=== PATIENT | male | born 2000 | race Caucasian/White ===

== ENCOUNTER 2022-01-20 18:44 | Emergency (ER) | payer OTHER, SELFPAY ==
[2022-01-20 18:51] VITALS: BP 117/64; PULSE 113; RESP 16; TEMP 36.3; O2SAT 98
--- NOTE | 2022-01-20 20:10 | ED.URI ---
HPI - URI/Sore Throat General Chief Complaint: Upper Respiratory Infection Stated Complaint: Headache/Sore Throat Time Seen by Provider: 01/20/22 20:07 Source: patient and RN notes reviewed Mode of arrival: ambulatory Limitations: no limitations History of Present Illness HPI Narrative: 21-year-old male presenting for complaint of headache, body aches, sinus pressure/congestion, cough, fever/chills. onset Yesterday. He is taking DayQuil without relief. He denies sick contacts. He denies shortness of breath, wheezing, nausea, vomiting, diarrhea. MD elicited complaint: cough Related Data Home Medications Medication Instructions Recorded Confirmed No Home Medications 01/20/22 01/20/22 Allergies Allergy/AdvReac Type Severity Reaction Status Date / Time No Known Allergies Allergy Verified 01/20/22 18:54 Review of Systems Review of Systems: ROS per HPI Exam Narrative: GENERAL: Ill-appearing, nontoxic EYES: PERRLA, conjunctivae clear ENT: Mucous membranes moist. TM pearly truong with dull light reflex bilaterally; no tragal tenderness. Oropharynx erythematous without lesions or exudate, no drooling, no hoarseness, no trismus, uvula midline. No tripod positioning, muffled voice, soft palate or pharyngeal wall bulging NECK: Supple. No lymphadenopathy CHEST: Clear to auscultation, breath sounds equal. No wheezing, rhonchi, rales, or stridor. No respiratory distress, speaks in full sentences. HEART: Regular rate and rhythm. No murmur heard. SKIN: Warm, dry, no rash. NEURO: Alert and oriented x3. Course Course Emergency Course: Patient is aware of diagnosis, understands and agrees to treatment plan. Anticipatory guidance given. Patient agrees to follow-up as directed and is aware of reasons to seek care at the emergency department. Portions of this record may have been created with voice recognition software Level of Care: Express Care Visit Vital Signs Vital signs: Vital Signs Temperature 97.4 F L 01/20/22 18:51 Pulse Rate 113 H 01/20/22 18:51 Respiratory Rate 16 01/20/22 18:51 Blood Pressure 117/64 01/20/22 18:51 Pulse Oximetry 98 01/20/22 18:51 Oxygen Delivery Room Air 01/20/22 18:51 Temperature 97.4 F L 01/20/22 18:51 Pulse Rate 113 H 12/06/22 18:51 Respiratory Rate 16 01/20/22 18:51 Blood Pressure 117/64 01/20/22 18:51 Pulse Oximetry 98 01/20/22 18:51 Oxygen Delivery Room Air 01/20/22 18:51 reviewed MDM - URI/Sore Throat MDM Narrative Medical decision making narrative: covid negative, flu positive. Results reviewed with patient. Advised supportive measures and signs/symptoms to go to the ER. Pt is appropriate for outpt treatment and f/u. Differential Diagnosis Differential diagnosis: Likely upper respiratory infection, sinusitis and viral infection Lab Data Labs: Lab Results 01/20/22 Range/Units Unknown POC SARS CoV-2 Ag Negative (Negative) Discharge Plan Discharge Clinical Impression: Influenza Patient Disposition: Home, Self-Care Condition: Stable Instructions: Influenza (ED) Additional Instructions: Influenza positive You should avoid crowds until you are fever free for 24 hours without the use of fever reducing medications, or the symptoms are improved Rest. Drink plenty of fluids. Tylenol 1000mg every 8 hours as needed for pain/fever Recommend Flonase spray and Zyrtec (or Claritin/Carol) for sinus pressure/congestion over the counter Cough syrup may cause drowsiness; avoid driving or take it at night time. Follow up with your primary care provider as needed in 1-2 weeks Go to the ER for worsening symptoms or concerns Prescriptions: No Action No Home Medications Follow-up/Referrals: PHYSICIAN,UNIVERSAL WINDING MACHINE OPERATOR [Primary Care Provider] - Stand Alone Forms: Work/School Release IP Time of Disposition: 20:35
== END 2022-01-20 20:40 | disposition home or self-care (01) ==
PROVIDERS: Emergency Provider Nurse Practitioner Family
DX: J11.1 Influenza due to unidentified influenza virus with other respiratory manifestations (principal); Z20.822 Contact with and (suspected) exposure to COVID-19
CPT/HCPCS: 87426; 87804; 99213; C9803; G0463

== ENCOUNTER 2022-07-24 13:05 | Emergency (ER) | payer OTHER, SELFPAY ==
[2022-07-24 13:19] VITALS: BP 115/67; PULSE 80; RESP 18; TEMP 36.1; O2SAT 99
--- NOTE | 2022-07-24 13:25 | ED.GENADULT ---
HPI - General Adult General Stated complaint: has strep/needs note to return to work Source: patient and RN notes reviewed History of Present Illness HPI narrative: 22 yo M presents to urgent care with complaints of continued sore throat, MILIAN, and soreness to his bilateral anterior neck. Pt states he was dx with strep throat on Wednesday and placed on Amoxicillin at that time. Pt states this is very typical for him when he gets strep and he is here for a work note. Pt states his original work note instructed him to come back today but he doesn't feel well enough to return until tomorrow. Denies any fevers, chills, vomiting, SOB, or chest pain. Related Data Home Medications Medication Instructions Recorded Confirmed amoxicillin 875 mg tablet mg 07/24/22 07/24/22 sertraline 50 mg tablet 50 mg PO DAILY 07/24/22 07/24/22 Allergies Allergy/AdvReac Type Severity Reaction Status Date / Time No Known Allergies Allergy Verified 07/24/22 13:24 Review of Systems Review of Systems: Pertinent positives and pertinent negatives per HPI. PMFSH Comments At the time of my signature, I reviewed and agree with the nursing past medical, surgical, social, and family history. There is no relevant family history pertinent to the patient complaint. Exam Narrative: GENERAL: This is a well-nourished, well-developed patient, in no apparent distress. HEAD: normocephalic, atraumatic. EYES: Sclera clear/white. Vision is grossly intact. EARS: External ears normal, auditory canals clear and without drainage, TMs normal without perforation. Hearing grossly intact. NOSE: External nose normal with no obvious nasal discharge, nares without redness, no rhinorrhea. THROAT: Mucous membranes moist, posterior pharynx clear. NECK: Neck supple, non-tender without lymphadenopathy, masses or thyromegaly. CARDIOVASCULAR: Regular rate and rhythm without murmurs, gallops, or rubs. RESPIRATORY: Clear to auscultation. Breath sounds equal bilaterally. No wheezes, rales, or rhonchi. GASTROINTESTINAL: Abdomen soft, non-tender, nondistended. Bowel sounds are active. No hepato-splenomegaly, or palpable masses. No guarding. SKIN: warm, intact with no suspicious lesions or rash, good texture and turgor. NEURO: awake, alert, and oriented to person, place and time. There were no obvious focal neurologic abnormalities. Course Course Level of Care: Express Care Visit Vital Signs Vital signs: Vital Signs Temperature 97 F L 07/24/22 13:19 Pulse Rate 80 07/24/22 13:19 Respiratory Rate 18 07/24/22 13:19 Blood Pressure 115/67 07/24/22 13:19 Pulse Oximetry 99 07/24/22 13:19 Oxygen Delivery Room Air 07/24/22 13:19 Temperature 97 F L 07/24/22 13:19 Pulse Rate 80 07/24/22 13:19 Respiratory Rate 18 07/24/22 13:19 Blood Pressure 115/67 07/24/22 13:19 Pulse Oximetry 99 07/24/22 13:19 Oxygen Delivery Room Air 07/24/22 13:19 reviewed Medical Decision Making MDM Narrative Medical decision making narrative: Pt given a work note for today. Complete your antibiotics as directed. Get plenty of fluids. Differential Diagnosis Differential Diagnosis: needs a work note, strep throat, well child exam Vital Signs Vital Signs: Vital Signs Temperature 97 F L 07/24/22 13:19 Pulse Rate 80 07/24/22 13:19 Respiratory Rate 18 07/24/22 13:19 Blood Pressure 115/67 07/24/22 13:19 Pulse Oximetry 99 07/24/22 13:19 Oxygen Delivery Room Air 07/24/22 13:19 Temperature 97 F L 07/24/22 13:19 Pulse Rate 80 07/24/22 13:19 Respiratory Rate 18 07/24/22 13:19 Blood Pressure 115/67 07/24/22 13:19 Pulse Oximetry 99 07/24/22 13:19 Oxygen Delivery Room Air 07/24/22 13:19 Critical Care Time Critical Care Time Critical Care Time: No Discharge Plan Discharge Clinical Impression: Pharyngitis Qualifiers: Pharyngitis/tonsillitis etiology: streptococcus Qualified Code(s): J02.0 - Streptococcal pharyngi
== END 2022-07-24 13:38 | disposition home or self-care (01) ==
PROVIDERS: Emergency Provider Nurse Practitioner Family; PCP Family Medicine
DX: J02.0 Streptococcal pharyngitis (principal); F41.9 Anxiety disorder, unspecified
CPT/HCPCS: 99211; G0463

== ENCOUNTER 2022-09-22 11:51 | Emergency (ER) | payer OTHER, SELFPAY ==
[2022-09-22 11:56] VITALS: BP 115/59; PULSE 88; RESP 20; TEMP 37.1; O2SAT 99
--- NOTE | 2022-09-22 12:18 | ED.NAVMDI ---
HPI - Nausea/Vomiting/Diarrhea General Chief complaint: Nausea/Vomiting/Diarrhea Stated complaint: Diarrhea/Abdominal Pain Source: patient and RN notes reviewed History of Present Illness HPI Narrative: 22 yo M presents to urgent care with requests for a work note to return to work. Pt states he had diarrhea and abdominal discomfort starting Wednesday morning and the rest of the weekend, he didn't feel great. Pt states he is needing a note to go back to work. Denies any N/V, fevers, chills, further abdominal pain, or further diarrhea. Pt has no other complaints and and states his girlfriend was sick as well. Related Data Home Medications Medication Instructions Recorded Confirmed buspirone 15 mg tablet 7.5 mg PO PRN PRN Anxiety 09/22/22 09/22/22 Allergies Allergy/AdvReac Type Severity Reaction Status Date / Time No Known Allergies Allergy Verified 09/22/22 12:04 Review of Systems Review of Systems: Pertinent positives and pertinent negatives per HPI. PMFSH Comments At the time of my signature, I reviewed and agree with the nursing past medical, surgical, social, and family history. There is no relevant family history pertinent to the patient complaint. Exam Narrative: GENERAL: This is a well-nourished, well-developed patient, in no apparent distress. HEAD: normocephalic, atraumatic. EYES: Sclera clear/white. Vision is grossly intact. EARS: External ears normal, auditory canals clear and without drainage. Hearing grossly intact. NOSE: External nose normal with no obvious nasal discharge, nares without redness, no rhinorrhea. THROAT: Mucous membranes moist, posterior pharynx clear. NECK: Neck supple, non-tender without lymphadenopathy, masses or thyromegaly. CARDIOVASCULAR: Regular rate and rhythm without murmurs, gallops, or rubs. RESPIRATORY: Clear to auscultation. Breath sounds equal bilaterally. No wheezes, rales, or rhonchi. GASTROINTESTINAL: Abdomen soft, non-tender, nondistended. Bowel sounds are active. No hepato-splenomegaly, or palpable masses. No guarding. SKIN: warm, intact with no suspicious lesions or rash, good texture and turgor. NEURO: awake, alert, and oriented to person, place and time. There were no obvious focal neurologic abnormalities. EXTREMITIES: No clubbing, cyanosis, or edema. No joint tenderness, effusion, or edema noted. BACK: Nontender without deformity or crepitus. No flank tenderness. Course Course Level of Care: Express Care Visit Vital Signs Vital signs: Vital Signs Temperature 98.8 F 09/22/22 11:56 Pulse Rate 88 09/22/22 11:56 Respiratory Rate 20 09/22/22 11:56 Blood Pressure 115/59 L 09/22/22 11:56 Pulse Oximetry 99 09/22/22 11:56 Oxygen Delivery Room Air 09/22/22 11:56 Temperature 98.8 F 09/22/22 11:56 Pulse Rate 88 09/22/22 11:56 Respiratory Rate 20 09/22/22 11:56 Blood Pressure 115/59 L 09/22/22 11:56 Pulse Oximetry 99 09/22/22 11:56 Oxygen Delivery Room Air 09/22/22 11:56 Reviewed MDM - Nausea/Vomiting/Diarrhea Differential Diagnosis Differential diagnosis: Likely traveler's diarrhea, food poisoning and gastroenteritis Critical Care Time Critical Care Time Critical Care Time: No Discharge Plan Discharge Clinical Impression: Well adult exam Patient Disposition: Home, Self-Care Condition: Stable Instructions: General Patient Instructions Prescriptions: No Action buspirone [BuSpar] 15 mg Tablet 7.5 mg PO PRN PRN (Reason: Anxiety) Follow-up/Referrals: Mateusz,Sarahi Selby DO [Primary Care Provider] - Stand Alone Forms: Work/School Release IP Time of Disposition: 12:21
== END 2022-09-22 12:26 | disposition home or self-care (01) ==
PROVIDERS: Emergency Provider Nurse Practitioner Family; PCP Family Medicine
DX: Z00.00 Encounter for general adult medical examination without abnormal findings (principal)
CPT/HCPCS: 99211; G0463

== ENCOUNTER 2024-08-19 19:31 | Emergency (ER) | payer SELFPAY ==
--- OUTSIDE RECORDS SUMMARY | 2024-08-19 19:33 | XMS_ITS | Clinical Summary ---
Author Organization [facility] [address] [place] [id number] Care Team Providers Care Welder Apprentice Name Role Phone Sarahi Child Primary Care Provider [phone] Allergies No known active allergies Medications cetirizine (ZyrTEC) 10 mg chewable tablet Take 1 tablet (10 mg total) by mouth daily Active methylPREDNISol one (MEDROL DOSEPACK) 4 mg DosepackIndicat ions:Acute right-sided low back pain without sciatica Take as directed on package. 21 tablet 04/06/2024 Active ibuprofen (ADVIL,MOTRIN) 800 mg tabletIndicatio ns:Acute right-sided low back pain without sciatica Take 1 tablet (800 mg total) by mouth every 8 (eight) hours as needed for pain (pain) 90 tablet 1 04/06/2024 04/06/19 26 Active cyclobenzaprine (FLEXERIL) 10 mg tabletIndicatio ns:Acute right-sided low back pain without sciatica Take 1 tablet (10 mg total) by mouth nightly as needed for muscle spasms 30 tablet 1 04/06/2024 04/06/19 26 Active Active Problems Problem Noted Date Diagnosed Date Acne vulgaris 10/04/2023 Assessment & Plan (10/04/2023 3:10 PM CDT): Requesting referral to Dermatology for treatment. He has tried [id number] treatments without any success. Referral placed. Shifting sleep-work schedule, affecting sleep Assessment & Plan (04/09/2022 9:56 AM ELECTRICIAN'S ASSISTANT): Trial of Ambien. Precautions given. Family history of cardiac disorder 03/17/2022 Assessment & Plan (03/17/2022 3:13 PM ELECTRICIAN'S ASSISTANT): Referred to cardiology for further eval/mgmt. Family history of anxiety disorder 03/17/2022 Assessment & Plan (03/17/2022 3:13 PM ELECTRICIAN'S ASSISTANT): Trial of sertraline, encouraged counseling. Class 1 obesity due to exces s calories without serious comorbidity with body mass index (BMI) of 33.0 to 33.9 in adult 03/14/2021 Assessment & Plan (07/27/2022 12:32 PM CDT): Wt Readings from Last 3 Encounters: 07/27/22 106.4 kg (234 lb 9.6 oz) 07/22/22 95.3 kg (210 lb) 06/12/22 102.5 kg (226 lb) BMI Readings from Last 3 Encounters: 07/27/22 34.62 kg/m 07/22/22 30.99 kg/m 06/12/22 33.36 kg/m Not at goal of bmi <30 Continue diet and exercise BMI Follow-up includes: nutrition counseling and exercise counseling. Assessment & Plan (03/17/2021 12:14 AM ELECTRICIAN'S ASSISTANT): Weight reduction, daily exercise and dietary modifications recommended. Resolved Problems Problem Noted Date Diagnosed Date Resolved Date Gastroenteritis 06/10/2022 10/04/2023 Assessment & Plan (06/12/2022 10:13 AM CDT): Clinically resolved. Return to work note given to patient. Chest pain 03/17/2022 04/08/2022 Assessment & Plan (03/17/2022 3:11 PM ELECTRICIAN'S ASSISTANT): Unchanged from when he went to ER. Reviewed ER records, agree with ER physician when he states that most likely non-cardiac chest pain. However, due to his family history, will refer to cardiology for further evaluation. Patient feels comfortable with this. Return to work note given. Generalized anxiety disorder 03/17/2022 10/04/2023 Assessment & Plan (08/28/2022 11:10 AM CDT): Patient feels like the BuSpar has helped him, and he would like to remain on it and take it on an as-needed basis. Will follow closely. Go to nearest emergency room if you feel you may be a harm to herself or to someone else. Assessment & Plan (07/27/2022 12:43 PM CDT): Pt states that sx are worsening - having episodes of heavy chest pressure with rapid heartbeats, feels body go numb this has previously happened before Had previously good results with sertraline Will increase his sertraline to 75 mg every day, and start buspar 7.5 mg bi Discussed increasing it to 100 but patient didn't want to go that high Assessment & Plan (04/09/2022 9:56 AM ELECTRICIAN'S ASSISTANT): Clinically improved, increase sertraline from 25 mg daily up to 50 mg daily. Go to nearest emergency room if you feel you will be a harm to herself or to others. Assessment & Plan (03/17/2022 3:09 PM ELECTRICIAN'S ASSISTANT): Trial of sertraline. Encouraged counseling, gave patient a counseling packet that has local counselor information in it. Encouraged him to check benefits with his insurance company. Close f/u. Go to nearest ER if you feel you will be a harm to yourself or to someone else. Acute left-sided low back pa in without sciatica 03/17/2021 03/17/2022 Assessment & Plan (03/17/2021 12:16 AM ELECTRICIAN'S ASSISTANT): Urine dipstick neg. Xrays ordered. Referred to PT. Strain of lumbar region 03/17/202102/17 Assessment & Plan (03/17/2021 12:15 AM ELECTRICIAN'S ASSISTANT): Heating pad recommended. OTC pain reliever of choice recommended. Xrays ordered, will follow. Referred to PT. Contact dermatitis 02/16/2017 Assessment & Plan (02/16/2017 6:31 PM ELECTRICIAN'S ASSISTANT): Complete the prednisone as directed You may use Benadryl or Zyrtec for itching You can use an OTC hydrocortisone cream to soothe your skin topically Keep your skin cool & wear loose clothing to avoid becoming hot, which could increase the itching. If your rash is not getting better after finishing the steroids, please RTC or follow up w PCP If your symptoms worsen- go to ER Encounters Date Type Department Care Team Description 07/27/2024 Telephone [facility] [address] [place] [phone] Sarahi Child, DO from Last 3 Months Immunizations Immunization Administration Dates Next Due DTaP, Unspecified 05/27/2005, 2,2000,09/22,2000 HPV9 09/14/2018,10/20/2017,07/06/2017 Hep A, Ped Unspecified 09/11/2005 Hep A, Unspecified 12/08/2004 Hep B, Adolescent or Pediatric 09/14/2018,2000 Hep B, Unspecified 2000,2000 HiB 05/10/2001,2000,2000 Influenza, Quadrivalent, Spl it, Preservative Free, Intramuscular 03/17/2022,11/19/2017 Influenza, Unspecified 11/16/2023(Deferr ed: Patient Refused),03/14/2021(Deferred: Patient Refused),12/27/2007,11/22/2002, 002,01/05/2002 Influenza, Whole 12/14/2006 MMR 05/16/2004,08/10/2001 Meningococcal B, OMV (Bexsero) 11/19/2017,2017 Meningococcal MCV4, Unspecified 10/06/2011 Meningococcal MCV4P (Menactra) 08/10/2017 Pneumococcal Conjugate PCV 13 08/10/2001, 001,2000 Polio, Unspecified 05/27/2005, 1,2000,07/09 Tdap 10/15/2010 Varicella 05/11/2006,05/10/2001 Surgical History Surgery Date Site/Laterality Comments NO PAST SURGERIES Medical History Medical History Date Comments Asthma Family History Medical History Relation Name Comments Bartholomew's esophagus Father Cancer Maternal Grandfather Cancer Maternal Grandmother Anxiety disorder Mother Relation Name Status Comments Father Alive Maternal Grandfather Maternal Grandmother Mother Alive Social History Tobacco Use Types Packs/Day Years Used Date Smoking Tobacco: Some Days Cigarettes Cigars Smokeless Tobacco: Never Tobacco Cessation:Ready to Q uit: Not Asked; Counseling Given: Not Answered Alcohol Use Standard Drinks/Week Comments No 0 (1 standard drink = 0.6 oz pur e alcohol) AUDIT-C Answer Date Recorded Q1: How often do you have a drink containing alc ohol? 2-4 times a month 10/04/2023 Q2: How many drinks containi ng alcohol do you have on a typical day when you are drinking? 1 or 2 10/04/2023 Q3: How often do you have si x or more drinks on one occasion? Never 10/04/2023 PHQ-2 Answer Date Recorded PHQ-2 Total Score (If total score is 3 or more points, staff should administer the PHQ-9) 0 10/04/2023 Personal Safety Answer Date Recorded Have you ever been in or are you currently in a harmful physical or emotional relationship or is someone making you feel afraid or unsafe? Denies 06/10/2022 Sex and Gender Information Value Date Recorded Sex Assigned at Not on file Legal Sex Male 3:03 AM ELECTRICIAN'S ASSISTANT Gender Identity Not on file Sexual Orientation Not on file Obstetrics History Last Filed Vital Signs Vital Sign Reading Time Taken Comments Blood Pressure 104/60 04/06/2024 1:06 PM ELECTRICIAN'S ASSISTANT Pulse 87 04/06/2024 1:06 PM ELECTRICIAN'S ASSISTANT Temperature 37.1 C (98.8 F) 04/06/2024 1:06 PM ELECTRICIAN'S ASSISTANT Respiratory Rate 16 04/06/2024 1:06 PM ELECTRICIAN'S ASSISTANT Oxygen Saturation 98% 04/06/2024 1:06 PM ELECTRICIAN'S ASSISTANT Inhaled Oxygen Concentration - - Weight 101.3 kg (223 lb 6.4 oz) 04/06/2024 1:06 PM ELECTRICIAN'S ASSISTANT Height 172.7 cm (5' 8) 04/06/2024 1:06 PM ELECTRICIAN'S ASSISTANT Body Mass Index 33.97 04/06/2024 1:06 PM ELECTRICIAN'S ASSISTANT Plan of Treatment Health Maintenance Due Date Last Done Comments Hepatitis C Screening 2000 Depression Screening 10/03/2024 10/04/2023, 08/26/2022, 08/26/2022, Additional history exists Regular Well Visit/Exam 18-64 10/03/2024 10/04/2023 Influenza Vaccine (Season Ended) 2024 03/17/2022, 11/19/2017, 12/27/2007, Additional history exists Pneumococcal vaccine <65 (1 of 1 - PPSV23) 03/20/2025 08/10/2001, 2000, 2000 Postponed from 2006 (Patient declined, but will receive in the future) DTaP/Tdap/Td Vaccine (7 - Td or Tdap) 04/04/2027 10/15/2010, 05/27/2005, 08/10/2001, Additional history exists Postponed from 10/15/2020 (Insurance / Financial) Varicella Vaccines Completed 05/11/2006, 05/10/2001 HPV Vaccines Completed 09/14/2018, 06/2017, 07/06/2017 Hepatitis B Screening Completed 09/14/2018 , 2000, 2000, Additional history exists [place] [address] [facility] Care Teams Welder Apprentice Relationship Specialty Start Date End Date Sarahi Child DO [address] [facility] [address] [address] [place]IM[place] [address] [place] [phone] PCP - General Family Medicine 03/14/21
--- OUTSIDE RECORDS SUMMARY | 2024-08-19 19:33 | XMS_ITS | Encounter Summary ---
Author Organization [facility] Healthcare Address [address] [place] [address] Care Team Providers Care Finishing Area Operator Name Role Phone Sarahi Child DO Primary Care Provider [phone]- [phone] Encounter Details Date Type Department Care Team (Late st Contact Info) Description 10/13/2023 Orders Only [facility] Health Information Management [address] [place] [phone] [place] [address] [place] [address] [address] Social History Tobacco Use Types Packs/Day Years Used Date Smoking Tobacco: Some Days Cigarettes Cigars Smokeless Tobacco: Never Alcohol Use Standard Drinks/Week Comments No 0 [...] on file Legal Sex 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:03 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 Gender Identity Not on file Sexual Orientation Not on file documented as of this encounter Plan of Treatment Not on file documented as of this encounter Procedures Procedure Name Priority Date/Time Associated Diagnosis Comments SCAN - LABS 10/13/2023 documented in this encounter Results * SCAN - LABS (10/13/2023) us Sarahi Child DO Final Resu lt documented in this encounter Visit Diagnoses Not on filedocumented in this encounter Care Teams Finishing Area Operator Relationship Specialty Start Date End Date Sarahi Child DO [address] [facility] [address] [facility] [place] [address] PCP - General Family Medicine 03/14/21 documented as of this encounter
--- OUTSIDE RECORDS SUMMARY | 2024-08-19 19:33 | XMS_ITS | Referral Summary ---
Author Organization [id number] [place] Address [address] [place] [id number] Care Team Providers Care Refrigeration Engineering Teacher Name Role Phone Sarahi Child DO Primary Care Provider [phone]- [phone] Encounters Date Type Department Care Team Description 07/27/2024 Telephone [facility] [place] [address] [place] [address] [address] [place] [address] Sarahi Child DO from Last 3 Months Allergies No known active allergies Medications cetirizine [...] to Dermatology for treatment. He has tried [id number] treatments without any success. Referral placed. 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 Precautions given. Family history of cardiac disorder 03/17/2022 Assessment & Plan (03/17/2022 3:13 PM HAND PRINTED [employer] BOARD ASSEMBLER): Referred to cardiology for further eval/mgmt. Family history of anxiety disorder 03/17/2022 Assessment & Plan (03/17/2022 3:13 PM HAND PRINTED [employer] BOARD ASSEMBLER): Trial of sertraline, encouraged counseling. Class 1 [...] counseling. Assessment & Plan (03/17/2021 12:14 AM HAND PRINTED CIRCUIT BOARD ASSEMBLER): Weight reduction, daily exercise and dietary modifications recommended. Resolved Problems Problem Noted Date Diagnosed Date Resolved Date Gastroenteritis 06/10/2022 10/04/2023 Assessment & Plan (06/12/2022 10:13 AM CDT): Clinically resolved. Return to work note given to patient. Chest pain 03/17/2022 04/08/2022 Assessment & Plan (03/17/2022 3:11 PM HAND PRINTED [employer]ARD ASSEMBLER): Unchanged from when he went to ER. [...] high Assessment & Plan (04/09/2022 9:56 AM HAND PRINTED CIRCUIT BOARD ASSEMBLER): Clinically improved, increase sertraline from 25 mg daily up to 50 mg daily. Go to nearest emergency room if you feel you will be a harm to herself or to others. Assessment & Plan (03/17/2022 3:09 PM HAND PRINTED [employer] BOARD ASSEMBLER): Trial of sertraline. Encouraged counseling, gave patient a counseling packet that has local counselor information in it. Encouraged him to check benefits with his insurance company. Close f/u. Go to nearest ER if you feel you will be a harm to yourself or to someone else. Acute left-sided low back pa in without sciatica 03/17/2021 03/17/2022 Assessment & Plan (03/17/2021 12:16 AM HAND PRINTED [employer]ARD ASSEMBLER): Urine dipstick neg. Xrays ordered. Referred to PT. Strain of lumbar region 03/17/202102/17 Assessment & Plan (03/17/2021 12:15 AM HAND PRINTED CIRCUIT BOARD ASSEMBLER): Heating pad recommended. OTC pain reliever of choice recommended. Xrays ordered, will follow. Referred to PT. Contact dermatitis 02/16/2017 Assessment & Plan (02/16/2017 6:31 PM HAND PRINTED CIRCUIT BOARD ASSEMBLER): Complete the prednisone as directed You may [...] If your symptoms worsen- go to ER Immunizations Immunization Administration Dates Next Due DTaP, [...] Unspecified 05/27/2005, 1,2000,07/09 Tdap 10/15/2010 Varicella 05/11/2006,05/10/2001 Social History Tobacco Use Types Packs/Day Years [...] on file Legal Sex Male 3:03 AM HAND PRINTED [employer] ASSEMBLER Gender Identity Not on file Sexual Orientation Not on file Last Filed Vital Signs Vital Sign Reading Time Taken Comments Blood Pressure 104/60 04/06/2024 1:06 PM HAND [employer]ED [employer]SEMBLER Pulse 87 04/06/2024 1:06 PM HAND PRINTED [employer] ASSEMBLER Temperature 37.1 C (98.8 F) 04/06/2024 1:06 PM HAND PR[employer]ED [employer]BLER Respiratory Rate 16 04/06/2024 1:06 PM HAND PRINTED [employer]ARD ASSEMBLER Oxygen Saturation 98% 04/06/2024 1:06 PM HAND PR[employer]ED [employer] ASSEMBLER Inhaled Oxygen Concentration - - Weight 101.3 kg (223 lb 6.4 oz) 04/06/2024 1:06 PM HAND PRINTED [employer] ASSEMBLER Height 172.7 cm (5' 8) 04/06/2024 1:06 PM HAND PR[employer]ED [employer] ASSEMBLER Body Mass Index 33.97 04/06/2024 1:06 PM HAND PRINTED [employer] ASSEMBLER Plan of Treatment Not on file Insurance [facility] Care Teams Refrigeration Engineering Teacher Relationship Specialty Start Date End Date Sarahi Child DO [address] [address] PCP - General Family Medicine 03/14/21
[2024-08-19 19:44] VITALS: BP 113/54; PULSE 85; RESP 18; TEMP 36.6; O2SAT 100
--- NOTE | 2024-08-19 19:45 | ED_ITS ---
HPI - Headache General Chief Complaint: Headache Stated Complaint: Headache/Nausea/Dizziness Patient presents to [facility] with complaints of diarrhea that began about 3 days ago. Noted that he was having 5-6 episodes of diarrhea a day but feels like he was not fully emptying. No new foods or cause for diarrhea. Patient does no history of constipation as a child but does not have significant problems with this. Patient noted he was feeling better yesterday but did drink some beer due to the holiday and today is having more diarrhea and slightly uncomfortable cramping and lower abdomen. patient also reports diffuse headache today. Patient noted he has not eaten much today and believes this is contributing. No medication around these attempted for symptoms. Denies fever, chills, body aches, vision changes, nausea, vomiting, blood in stool. Related Data Home Medications ?Medication ?Instructions ?Recorded ?Confirmed ?Last Taken ?Type No Home Medications 08/19/24 08/19/24 Unknown History Allergies Allergy/AdvReac Type Severity Reaction Status Date / Time No Known Allergies Allergy Verified 08/19/24 19:47 Review of Systems Constitutional: Constitutional: Reports as per HPI, Denies chills, Denies fatigue, Denies fever(s) and Denies weakness Eyes: Eyes: Reports as per HPI, Denies change in vision and Denies photophobia ENT: Reports as per HPI, Denies vertigo and Denies dizziness Cardiovascular: Cardiovascular: Reports no additional cardiovascular complaints Respiratory: Respiratory: Reports no additional respiratory complaints Gastrointestinal: Gastrointestinal: Reports as per HPI, Reports abdominal pain, Reports bloating, Denies constipation, Denies heartburn, Reports diarrhea, Denies nausea and Denies vomiting Genitourinary: Genitourinary: Reports as per HPI, Denies testicular pain, Denies urinary frequency and Denies urinary incontinence Musculoskeletal: Musculoskeletal: Reports no additional musculoskeletal complaints Neurologic: Reports as per HPI, Denies confusion, Denies vertigo, Denies dizziness, Denies syncope, Reports headache(s), Denies focal weakness, Denies numbness and Denies weakness Psychiatric: Psychiatric: Reports no additional psychiatric complaints Endocrine: Endocrine: Reports no additional endocrine complaints Hematologic/Lymphatic: Hematologic/Lymphatic: Reports no additional hematologic/lymphatic complaints Allergic/Immunologic: Allergic/Immunologic: Reports no additional allergic/immunologic complaints Exam Const: General: healthy appearing and no acute distress Nutritional Appearance: well nourished Orientation/consciousness: patient oriented x3 Limitations: no limitations HENMT: Head: normal to inspection Eyes: Pupils: Equal, round and reactive pupils present EOM: EOMs intact bilaterally Direct Ophthalmoscopy: no photophobia Resp: Effort & Inspection: normal respiratory effort Auscultation: clear to auscultation bilaterally Cardio: Rate: regular rate Rhythm: regular rhythm GI: Inspection: non-distended GI Palp: Yes Soft to palpation, Yes Tenderness to palpation present (GI) ( Minimal tenderness right lower quadrant left lower quadrant and suprapubi), No Guarding due to palpation present (GI), No Rigid due to palpation, No Hernia present, No Palpable mass present and No Rebound tenderness present Auscultation: normal bowel sounds : General: Yes bladder normal to palpation, No Bladder palpation abnormal and Yes no CVA tenderness Back/Spine/Pelvis: Back: no CVA tenderness Skin: General skin exam: normal color Rashes: no rashes Wounds: no wounds Neuro: General: patient oriented x3 Speech: normal speech Gait exam (Neuro): Normal gait present Psych: Mental Status: mental status grossly normal Affect: normal affect Attitude: cooperative Course Course Level of Care: Express Care Visit MDM - Headache MDM Narrative Medical decision making narrative: spoke with patient about overall symptoms noted that this could be a migraine- like headache got off a Toradol injection while here at the urgent care with [facility]. Patient declined medications. Patient would like to go home and take ibuprofen and rest. Also spoke with patient about abdominal pain, vital signs are normal. The [facility] and no significant tenderness noted. Patient can be evaluated in the emergency room for further evaluation and more answers. Patient declines transfer to the emergency room at this time. Will try [id number] medications and in the emergency room if symptoms worsen. Discharge instructions reviewed with patient, as well as provided in writing per nursing staff. The instructions also include specific and strict return/GO TO THE ER as well as f/u information. All questions have been answered, and the patient deny any further questions with discharge and discharge plan. Differential Diagnosis Differential diagnosis: Likely migraine, tension headache, headache, sinusitis and other ( Abdominal pain, diarrhea) Medical Records Attestation: I reviewed the patient's medical records. Discharge Plan Discharge Clinical Impression: Headache, Diarrhea Patient Disposition: Home Condition: Stable Instructions: Antibiotic Form, Acute Headache (ED), Acute Diarrhea (ED), Abdominal Pain (ED) Additional Instructions: recommended to take 600 to 800 mg of ibuprofen every 6 hours until headache is gone. He may alternate with Tylenol as well a 1000 mg every 6 hours as needed. Recommended increasing fluid intake with electrolytes. Patient should use MiraLax as needed if he feels that he is constipated. If abdominal pain worsens in any way thinned patient should go to the emergency room for further evaluation of symptoms. Patient Language: Rwandan Prescriptions: No Action No Home Medications Follow-up/Referrals: Mateusz,Sarahi Selby DO [Primary Care Provider] - Stand Alone Forms: Work/School Release IP Time of Disposition: 20:06
== END 2024-08-19 20:15 | disposition home or self-care (01) ==
PROVIDERS: Emergency Provider Nurse Practitioner Family; PCP Family Medicine
DX: R51.9 Headache, unspecified (principal); R19.7 Diarrhea, unspecified
CPT/HCPCS: 99213; G0463